=== PATIENT | female | born 1975 | race Caucasian/White ===

== ENCOUNTER 2020-08-25 04:47 | Emergency (ER) | payer SELFPAY ==
[2020-08-25] MEDS ORDERED: Ondansetron PF 4 MG/2 ML Vial ONE (05:09)
[2020-08-25] MEDS ORDERED: Morphine 4 MG/ML VIAL ONE (05:09)
[2020-08-25] MEDS ORDERED: HYDROcodone/Acetaminophen 5/325 mg Tablet ONE (06:18)
== END 2020-08-25 06:42 | disposition home or self-care (01) ==
LOC: CSHERS 04:47
DX: N10 Acute pyelonephritis (principal); F17.210 Nicotine dependence, cigarettes, uncomplicated
CPT/HCPCS: 76705; 96374; 96375; J2270; J2405

== ENCOUNTER 2023-04-26 17:04 | Emergency (ER) | payer SELFPAY ==
[2023-04-26] MEDS ORDERED: Morphine 4 MG/ML VIAL ONE (18:09)
== END 2023-04-26 18:32 | disposition home or self-care (01) ==
LOC: CSHERS 17:04
DX: S42.031A Displaced fracture of lateral end of right clavicle, initial encounter for closed fracture (principal); F17.210 Nicotine dependence, cigarettes, uncomplicated; W19.XXXA Unspecified fall, initial encounter
CPT/HCPCS: 96372; J2270